=== PATIENT | male | born 1995 | race Two or more races ===

== ENCOUNTER 2017-06-12 12:22 | Emergency (ER) | payer OTHER ==
[2017-06-12] MEDS: LIDOCAINE WITH 8.4% SOD BICARB 3 ML DISP.SYRIN. INJ ×2 (13:28)
[2017-06-12] MEDS: DIPHTH,PERTUSS(ACELL),TET TOX 0.5 ML DISP.SYRIN. VAX IM ×2 (13:29)
== END 2017-06-12 14:13 | disposition home or self-care (01) ==
LOC: ER 12:22
DX: S61.412A Laceration without foreign body of left hand, initial encounter (principal); E78.00 Pure hypercholesterolemia, unspecified; W26.8XXA Contact with other sharp object(s), not elsewhere classified, initial encounter; Y93.89 Activity, other specified; Y99.8 Other external cause status; Y92.89 Other specified places as the place of occurrence of the external cause
CPT/HCPCS: 12002; 90471; 90715; 99283-25